=== PATIENT | female | born 1945 | race Caucasian/White ===

== ENCOUNTER → 2016-09-20 | Outpatient (CLI) | payer MEDICARE, OTHER ==
[~2016-09-20] MED LIST: COUMADIN5 MG PO; CULTURELLE CAP1 EACH PO; FAMOTIDINE PO; FLAGYL PO; FLORASTOR250 M1 PO; K-DUR20 ME1 PO; LEVAQUIN PO; LOPRESSOR PO; LOPRESSOR100 MG PO; LOVENOX40 MG/0.4 INJ; TUMS500 M1 PO; ZOFRAN PO; [UNRECOGNIZED DRUG - REMARK] PO
--- NOTE | ~2016-09-20 | CT55 ---
[facility] A Service of [facility] / [facility] RADIOLOGY TEXT RESULTS PATIENT: BERTA OROZCO LOCATION: [facility] : 47 UNIT #: [id number] AGE: [address]: Cassidy Soriano MD SEX: F ORDER DR: [id number] [facility] [address] [place], [place] [address] [id number] O MR#: [id number] Acc #: [id number] NAME: BERTA OROZCO : 1945 SEX: F STUDY DATE/TIME: 09/20/2016 10:30 UNIT: [facility] ROOM: STUDY DESCRIPTION: CT Chest W Con Attending Physician: Cassidy Soriano M.D. Ordering Physician: Cassidy Soriano M.D. Primary Care Physician: Yandel Curtis M.D. MEDICAL IMAGING REPORT This report is preliminary unless electronic signature is present EXAM CT chest with contrast DATE 09/20/2016 HISTORY 71-year-old female with pancreatic cancer. Observation for metastatic disease. Restaging. COMPARISON CT chest with contrast 04/13/2016. PROCEDURE 5 mm axial images through the chest after IV contrast. Sagittal and coronal reformatted images were obtained. This CT exam was performed with one or more of the following radiation dose reduction techniques: Automatic exposure control, adjustment of mA and/or kV according to patient size, and iterative reconstruction. FINDINGS No suspicious pulmonary nodules. Benign calcified granulomas in both lungs. No pathologically-enlarged lymph nodes. No pericardial effusion or pleural effusion. Imaged portion of thyroid gland is normal. Previously described 6 mm ground-glass nodule within the right middle lobe (image 33) is a stable finding since 06/25/2014, in keeping with a benign finding. There is stable mild scarring within the inferior medial right upper lobe and within the lingula. Multilevel degenerative disc and endplate changes within the thoracic spine. No suspicious osteolytic or osteoblastic abnormalities. Mild upper thoracic curvature toward the right. [facility] A Service [facility] RADIOLOGY TEXT RESULTS PATIENT: BERTA OROZCO LOCATION: [facility] : 47 UNIT #: [id number] AGE: [address]: Cassidy Soriano MD SEX: F ORDER DR: IMPRESSION 1. There is no convincing evidence of metastatic disease or disease recurrence in the chest in this patient with the history of pancreatic carcinoma. 2. 6 mm ground-glass focus within the right middle lobe has been stable for over 2 years in keeping with a benign finding. No further follow-up is warranted with respect to this. 3. Benign calcified granulomatous changes. 4. Multilevel degenerative disc and endplate changes in the thoracic spine. 5. CT abdomen and pelvis performed on the same date has been dictated separately. Dictated by... Priyanka Stewart M.D. THIS IS AN ELECTRONICALLY VERIFIED REPORT Priyanka Stewart M.D. at 09/21/2016 8:46 AM MARIANELA/yeimy TD: 09/20/2016 14:27 JOB #: [id number] MEDICAL IMAGING REPORT Page 1 of 1 COPY
--- NOTE | ~2016-09-20 | CT2 ---
[facility] A Service of [facility] RADIOLOGY TEXT RESULTS PATIENT: BERTA OROZCO LOCATION: [facility] : 47 UNIT #: [id number] AGE: [address]: Cassidy Soriano MD SEX: F ORDER DR: [id number] [facility] [address] [place], [place] [address] [id number] O MR#: [id number] Acc #: [id number] NAME: BERTA OROZCO : 1945 SEX: F STUDY DATE/TIME: 09/20/2016 10:30 UNIT: [facility] ROOM: STUDY DESCRIPTION: CT Abd and Pelv W Cont Attending Physician: Cassidy Soriano M.D. Ordering Physician: Cassidy Soriano M.D. Primary Care Physician: Yandel Curtis M.D. MEDICAL IMAGING REPORT This report is preliminary unless electronic signature is present EXAM CT abdomen and pelvis with contrast. DATE 09/20/2016 HISTORY Physician's order states malignant neoplasm of pancreas, unspecified. Patient states pancreatic cancer followup with right mid abdominal pain intermittently for [address] abdomen and pelvis with contrast 04/13/2016, CT abdomen and pelvis 11/18/2015. PROCEDURE 5 mm axial images from the lung bases through the lesser trochanters after intravenous contrast administration. Enteric contrast was not administered. Sagittal and coronal reformatted images were obtained. This CT exam was performed with one or more of the following radiation dose reduction techniques: automatic exposure control, adjustment of mA and/or kV according to patient size, and iterative reconstruction. FINDINGS ABDOMEN FINDINGS: Surgical changes of Whipple procedure are redemonstrated. A mildly prominent portacaval lymph node measuring 1.3 x 0.8 cm is unchanged from 11/18/2015. No new or suspicious adenopathy is identified. No recurrent soft tissue mass is seen within the pancreatic resection bed. The residual pancreas demonstrates normal enhancement. There are no focal or suspicious liver lesions. Gallbladder is surgically absent and there is no biliary dilation. [facility] A Service of [facility] RADIOLOGY TEXT RESULTS PATIENT: BERTA OROZCO LOCATION: [facility] : 47 UNIT #: [id number] AGE: [address]: Cassidy Soriano MD SEX: F ORDER DR: The spleen, adrenals, and right kidney are within normal limits. Nonobstructing stone in the left lower renal pole measures approximately 8 mm. A cyst within the left upper renal pole measures 1.6 cm. Unopacified bowel appears within normal limits. Varicosities are demonstrated within the left upper quadrant of the abdomen, particularly within the gastrohepatic and gastrosplenic ligaments. PELVIS FINDINGS: Right adnexal right ovarian cyst measures 4.9 x 4.1 cm, not appreciably changed since 11/18/2015. Hysterectomy. Urinary bladder and rectum are normal. No pelvic adenopathy or free fluid. Advanced degenerative disc and endplate changes predominate at L2-3 and L3-4. There is lumbar dextroscoliosis. No acute osseous abnormalities are identified. IMPRESSION 1. Surgical changes of Whipple procedure. There is no convincing evidence of recurrent or metastatic disease in the abdomen or pelvis in this patient with a history of pancreatic cancer. Previously described mildly prominent portacaval lymph node has been stable since 11/18/2015. 2. Right ovarian or right adnexal simple-appearing cyst measuring 4.9 cm, not significantly changed. 3. Left renal cyst and nonobstructing left renal stone. 4. Advanced degenerative disc and endplate changes in the lumbar spine. 5. CT chest performed on this same date has been dictated separately. Dictated by... Priyanka Stewart M.D. THIS IS AN ELECTRONICALLY VERIFIED REPORT Priyanka Stewart M.D. at 09/21/2016 8:46 AM MARIANELA/brayan TD: 09/20/2016 14:10 JOB #: [id number] MEDICAL IMAGING REPORT Page 1 of 1 COPY
[2016-09-20 09:50] LABS: POC - CREATININE 0.76 mg/dL (0.44-1.03); POC - GFR >60.0 mL/min (>60)
== END | disposition home or self-care (01) ==
LOC: CCAT 08:56
PROVIDERS: Internal Medicine Hematology
DX: Z08 Encounter for follow-up examination after completed treatment for malignant neoplasm (principal); I26.99 Other pulmonary embolism without acute cor pulmonale; N28.1 Cyst of kidney, acquired; N20.0 Calculus of kidney; M51.36 Other intervertebral disc degeneration, lumbar region; M51.34 Other intervertebral disc degeneration, thoracic region; Z85.07 Personal history of malignant neoplasm of pancreas
CPT/HCPCS: 71260; 74177; 82565; Q9967